=== PATIENT | male | born 1940 | race Caucasian/White ===

== ENCOUNTER 2017-08-31 14:30 | Observation (INO) | payer MEDICARE, OTHER ==
[~2017-08-31] VITALS: Ht 185.4 cm; Wt 95.2 kg
[2017-09-10] MEDS ORDERED: ELIQUIS5 MG PO (14:46)
[2017-09-10] MEDS ORDERED: METOPROLOL SUC100 MG PO (14:46)
[2017-09-10] MEDS ORDERED: IRBESARTAN150 MG PO (14:47)
--- NOTE | 2017-09-10 15:25 | NUR ---
PATIENT HERE TODAY FOR PREADMISSION APPOINTMENT. HE IS ACCOMPANIED BY HIS CHAU. HE IS SCHEDULED TO HAVE A RIGHT TOTAL KNEE REPLACEMEN ON 09/24/17. PATIENT STATES HE WOULD LIKE TO HAVE PHYSICAL THERAPY DONE IN [place]. STATES THE OFFICE FOR THE PHYSICAL THERAPIST IS IN THE [facility] BUILDING. HIS HAS HAD TOTAL KNEE SURGERY IN THE PAST AND THEY HAVE A FRONT WHEELED WALKER, SHOWER BENCH AND TOILET RISER. THEY ARE CURRENTLY LIVING IN A FIFTH WHEEL RV. THERE ARE 6 STEPS INTO THE RV AND 3 STEPS INTO THE BEDROOM FROM THE MAIN FLOOR. CHAU WILL BE THE ONE TO TRANSPORT HIM HOME AND TO APPOINTMENTS. THIS INFORMATION WILL BE SENT TO DR CARNEY OFFICE AND GA PLANNING FOR FURTHER FOLLOW UP.
[2017-09-10] MEDS ORDERED: VITAMIN C500 M1 PO (15:59)
[2017-09-10] MEDS ORDERED: ALLOPURINOL100 MG PO (15:59)
[2017-09-10] MEDS ORDERED: LORATADINE10 M2 PO (16:00)
[2017-09-10] MEDS ORDERED: ASPIR-LOW81 MG PO (16:00)
[2017-09-10] MEDS ORDERED: FINASTERIDE5 MG PO (16:00)
[2017-09-10] MEDS ORDERED: METFORMIN HCL500 MG PO (16:01)
[2017-09-10] MEDS ORDERED: MAGNESIUM CHLOR64 MG PO (16:01)
[2017-09-10] MEDS ORDERED: OMEPRAZOLE20 MG PO (16:01)
[2017-09-10] MEDS ORDERED: FLOMAX0.4 MG PO (16:02)
[2017-09-10] MEDS ORDERED: NITROGLYCERIN0.4 MG SL (16:02)
--- NOTE | 2017-09-24 11:48 | NUR ---
PT ALERT, ORIENTED AND SUPPORTED BY HIS . PT'S HAS HAD PREVIOUS JOINT REPLACEMENT WITH DR CARNEY, AND FEEL VERY SECURE. NO QUESTIONS, PT DID REQUEST PRAYER, WILL FOLLOW NEEDED
--- NOTE | 2017-09-24 12:24 | NUR ---
09/24/17 1224 Lola Bonilla 1208 PT ARRIVED IN PACU SLEEPY WITH NO C/O'S. CRYO CUFF PLACED ON R KNEE PER DR ORDERS. 1210 OXYGEN DECREASED TO 6L VIA MASK WITH SATS 100%. 1220 OXYGEN REMOVED. SATS 96% ON RA. PT VISITING WITH STAFF.
--- NOTE | 2017-09-24 13:28 | NUR ---
PT TO FLOOR AT 1300, ACCOMPANIED BY TALHA COTTON. RECIEVED BEDSIDE REPORT FROM TALHA COTTON. PT AWAKE, ALERT, ABLE TO MOVE LEGS, GROSS MOVEMENT, BUT UNABLE TO MOVE TOES. PT IS NOW ABLE TO MOVE RIGHT ANKLE AND TOES. PEDAL PULSES INTACT, DRESSING TO RIGHT KNEE C/D/I. PT FELL ASLEEP, AND OXYGEN SATURATION DROPPED TO 79% ON RA, PLACED PT ON 2L O2 VIA NC, SAT UP TO 98%.
--- NOTE | 2017-09-24 14:10 | NUR ---
PT RESTING IN BED, TALHA AGUSTIN ATTENDING. PT'S IS BY HIS SIDE, AND FELT HE WAS DOING WELL. PT SMILED AND ACKNOWLEDGED MY PRESENCE. EXTENDED A BLESSING, I WILL CONTINUE TO FOLLOW NEEDED
--- NOTE | 2017-09-24 14:43 | NUR ---
DR. TALAVERA AT BEDSIDE, NOTIFIED OF PATIENT'S DESATURATION WHILE SLEEPING, PATIENT IMPROVED WITH OXYGEN NC AT 2 LPM. NO FURTHER CONCERNS.
--- NOTE | 2017-09-24 14:46 | NUR ---
PT Eval assessment, charted on wrong patient. Patient should bed 122 instead of 125.
--- NOTE | 2017-09-24 15:00 | NUR ---
PT IN PATIENT ROOM.
--- NOTE | 2017-09-24 15:18 | NUR ---
PATIENT NAUSEATED, PATIENT HAD 500ML OF EMESIS, PATIENT GIVEN 4MG ZOFRAN IV. PATIENT WOULD LIKE TO HOLD OFF ON ORAL GABAPENTIN DUE TO NAUSEA AT THIS TIME.
--- NOTE | 2017-09-24 15:39 | NUR ---
PATIENT AMBULATED IN HALLWAY TWO LOOPS WITH PHYSICAL THERAPY FWW WITH GAIT BELT. PATIENT RETURNED WITH PHYSICAL THERAPY, ATTEMPT TO URINATE WITHOUT SUCCESS. PATIENT RETURNED TO BED. DRESSING CHECKED- C/D/I. SCDS APPLIED, CRYO CUFF PLACED ON RIGHT KNEE, HEEL PROTECTORS PLACED BACK ON PATIENT. IV FLUIDS CONTINUED.
--- NOTE | 2017-09-24 16:33 | NUR ---
ADMINISTERED 6.25MG PROMETHAZINE PER LEI LUNDY ENTRY WRITER REQUEST DUE TO PATIENT'S CONTINUED NAUSEA. PATIENT WITH 450ML EMESIS. PATIENT UNABLE TO EAT LUNCH PROVIDED DUE TO NAUSEA.
--- NOTE | 2017-09-24 17:09 | NUR ---
PATIENT WITH DINNER TRAY PROVIDED, PATIENT SITTING UPRIGHT, EATING. PATIENT'S AT BEDSIDE.
--- NOTE | 2017-09-24 18:20 | NUR ---
PATIENT WITH NO URGENCY OR FEELING THE NEED TO VOID, BLADDER SCAN PERFORMED ON PATIENT, 415ML.
--- NOTE | 2017-09-24 18:27 | NUR ---
PATIENT RESTING IN BED, READING. CALL LIGHT IN REACH. FRESH ICE WATER AT BEDSIDE TABLE. NO OTHER NEEDS AT THIS TIME.
--- NOTE | 2017-09-24 18:44 | NUR ---
PATIENT FROM OR AT 1330 HOURS, PATIENT WITH RTK, SPINAL WITH MORPHINE. PATIENT WITH MEPILEX, KULWANT WRAP, CRYO CUFF CLEAN, DRY, INTACT NO DRAINAGE. PATIENT ON ADA DIET. PATIENT WITH NAUSEA/VOMITTING EMESIS OF 450ML, 4MG ZOFRAN GIVEN IV. PATIENT WITH CONTINUED N/V, ADDITIONAL ORDER OF 6.25MG Q6P BY LEI LUNDY CRNA, AFTER ADMINISTRATION PATIENT DENIES N/V. PATIENT AMBULATED 2 LOOPS IN HALLWAY WITH PT USING FWW AND GAIT BELT. PATIENT DENIES PAIN. PATIENT GIVEN SCHEDULED TYLENOL AND TORADOL. PATIENT ATE 100% OF DINNER. PATIENT STILL WITH NO URINE OUTPUT, BLADDER SCAN PERFORMED AT 1800 HOURS, PATIENT WITH 415ML. NO URINARY CATHETER PLACED. PATIENT VOIDED 150ML, POST VOID SCAN SHOWED 480ML. PATIENT WITH DESATURATION TO 75-90% ON RA, PATIENT ON 2 LPM NC, CLEAR LUNG SOUNDS IN ALL BUSBY. PATIENT ENCOURAGED TO USE I/S AND DB&C. OTHERWISE VITALS STABLE. PEDAL PULSES EASILY PALPATED, SENSATION RETURNED TO BILATERAL FEET. RIGHT LOWER EXTREMITY MOVEMENT WEAK, PATIENT DOES WALK WITH FWW WITH 1 PERSON ASSIST.
--- NOTE | 2017-09-24 19:00 | NUR ---
IN ROOM FOR REPORT, PT IS AWAKE IN BED AND RATES PAIN AT 2/10 AT THIS TIME BUT DENIES NEED FOR PAIN MEDICATION.
--- NOTE | 2017-09-24 21:25 | NUR ---
IN ROOM TO ADMINISTER MEDICATIONS AND COMPLETE ASSESSMENT. PT WAS IN A DEEP SLEEP WHEN THIS RN ENTERED THE ROOM AND HAD AN INCONTINENT EPISODE. HELPED PT TO THE RESTROOM TO GET CLEANED UP AND HE VOIDED AN ADDITIONAL 225MLS. PT IS BACK IN BED AT THIS TIME WITH AES, SCDS, HEEL PROTECTORS AND CRYOCUFF IN PLACE. THE RT KNEE DRESSING IS CDI AND PT STATES HIS PAIN IS A 2/10 AT THIS TIME WHICH IS TOLERABLE. PT STATES HE HAS NO NUMBNESS OR TINGLING IN RT LEG AND HIS TOES ARE PINK AND WARM. DISCUSSED THE IMPORTANCE OF KEEPING ON TOP OF PAIN AND ADVISED PT TO LET THIS RN KNOW WHEN THE PAIN INCREASES. IV FLUID IS STILL RUNNING AT THIS TIME UNTIL WE CAN GET A MORE ACCURATE MEASUREMENT OF URINE. PT DENIES FURTHER NEEDS AT THIS TIME.
--- NOTE | 2017-09-24 23:10 | NUR ---
ASSISTED UP TO BATHROOM WITH FWW, [place], ABLE TO GET SELF OUT OF BED, STATING THAT HIS KNEE DOESN'T HURT, IT'S JUST ABOVE THE KNEE. BACK TO BED, CALL LIGHT, SCD'S, HEEL PROTECTS, CRYO IN PLACE, FRESH ICE WATER. STATES IT FELT GOOD TO GET UP.
--- NOTE | 2017-09-25 00:30 | NUR ---
PT IS RESTING WITH EYES CLOSED, RESPIRATIONS ARE EVEN AND NONLABORED. CALL LIGHT IS WITHIN REACH.
--- NOTE | 2017-09-25 03:01 | NUR ---
IN ROOM TO ADMINISTER MEDICATIONS PT HAD ANOTHER INCONTINENT EPISODE AND A VOID OF 200MLS. SL PT'S IV AT THIS TIME HE IS VOIDING AND TOLERATING FLUIDS AND FOOD. PT IS BACK IN BED WITH FRESH ICE IN CRYO AND DENIES FURTHER NEEDS. CALL LIGHT IS WITHIN REACH.
--- NOTE | 2017-09-25 06:19 | NUR ---
IN ROOM TO ADMINISTER TYLENOL. PT STATES PAIN IS 2/10 AT THIS TIME. FRESH WATER IS AT BEDSIDE AND PT DENIES FURTHER NEEDS.
--- NOTE | 2017-09-25 07:41 | OR ---
[facility] [address] [place], [place] [address] Signed DATE OF OPERATION: 09/24/2017 SURGEON: Nilsa Lindre MD PREOPERATIVE DIAGNOSIS: Degenerative joint disease, severe, right knee. POSTOPERATIVE DIAGNOSIS: Degenerative joint disease, severe, right knee. PROCEDURE PERFORMED: Right total knee arthroplasty with computer navigation. PULPWOOD CONTRACTOR: Glo Stevenson PA-C. Glo was present in critical positioning, retraction, and wound closure. ANESTHESIA: Spinal. BLOOD LOSS: Minimal. TOURNIQUET TIME: 55 minutes. IMPLANTS: [place] Triathlon size 6, 11 mm insert, and 38 patella. BRIEF HISTORY: João is a 76-year-old gentleman with progressive worsening of osteoarthritis in his knee. He had undergone nonoperative treatment without substantial relief. Risks, benefits, and alternatives were discussed with him. He elected to proceed. DESCRIPTION OF PROCEDURE: Once consent was obtained, he was taken to the operating room. After adequate anesthesia, he was placed on the operating room table and all downside pressure points well-padded. The right knee was prepped and draped in the standard sterile fashion up to well-padded proximal thigh tourniquet. The leg was exsanguinated using Esmarch bandage. Tourniquet inflated to 250 mmHg. Standard anterior-posterior through a curved Electronically Signed By: NILSA LINDER MD 09/25/17 0741 PATIENT NAME: JOÃO HUMPHREY OPERATIVE REPORT DATE OF : 44 REPORT #: [id number] PHYSICIAN: NILSA LINDER MD PCP: NILSA LINDER MD REPORT IS CONFIDENTIAL AND NOT TO BE RELEASED WITHOUT AUTHORIZATION [facility] [address] [place], [place] [address] Signed incision was taken through skin and subcutaneous tissue. Median parapatellar arthrotomy was performed. Infrapatellar fat pad was excised and the MCL was elevated of a sleeve around the posterior medial corner. The infrapatellar fat pad was excised. The anterior horns of menisci were transected and the ACL was transected. PCL was found to be intact. The knee was flexed and the navigation guide was pinned to the distal femur and the distal femur was registered with the computer. The distal femoral cutting guide was then pinned in anatomic alignment and the distal femoral cut was made. The distal femur was sized to a 6, osteophytes removed, and the AP cutting block was pinned in line with the epicondylar axis. The anterior, posterior, and chamfer cuts were made. The bone was removed. All osteophytes were removed as we went. Attention was then turned to the proximal tibia. The menisci were removed to allow better visualization. The Navigation guide was pinned to the tibia and the tibia was registered; however, the cutting block navigation guide would not work, so we elected to align the cutting jesi with the anterior tibial spine. The cutting block was pinned and the cut was made with care taken to protect the patellar tendon or MCL. The bone was excised as were any meniscal remnants. Posterior osteophytes were removed off the femur. No posterior release was performed secondary to excellent extension. The flexion and extension gaps were sized and found to be symmetric at 11 mm. The trials were positioned using range of motion and found to be stable. The patella was cut, sized, and drilled for a 38 mm patella. The distal femur was drilled and the proximal tibial keel punch was performed and the bone surfaces were pulse lavaged, packed with dry Ray-Twila. The cement was mixed. When it reached proper consistency, it was placed in all bone surfaces and all implants and tibia was impacted in position first and all excess cement was removed. The polyethylene was snapped into position and then the femur was impacted. Again, all excess cement was removed. The knee was extended and nicely loaded. The patella was clamped into position and the remaining cement was removed. The cement was allowed to harden. Once it hardened sufficiently, the knee was flexed and the remaining cement was removed using osteotomes. The knee was pulse lavaged at intervals throughout the procedure. A total of 3 L antibiotic irrigation was used. 100 mL of ropivacaine and Toradol mixture was injected in the soft tissues. The arthrotomy was closed with #2 Stratafix, subcutaneous tissue with #0 Stratafix, and skin with dayna. Wound was dressed with Mepilex, Ag dressing, ABD, and Ben wrap. He tolerated the procedure well. All sponge, needle, and instrument counts were correct. Nilsa Linder MD BA/MODL /[id number] Electronically Signed By: NILSA LINDER MD 09/25/17 0741 PATIENT NAME: JOÃO HUMPHREY OPERATIVE REPORT DATE OF : 42 REPORT #: [id number] PHYSICIAN: NILSA LINDER MD PCP: NILSA LINDER MD REPORT IS CONFIDENTIAL AND NOT TO BE RELEASED WITHOUT AUTHORIZATION [address] [address] Signed Copies: ~ Electronically Signed By: NILSA LINDER MD 09/25/17 0741 PATIENT NAME: JOÃO HUMPHREY OPERATIVE REPORT DATE OF : 42 REPORT #: [id number] PHYSICIAN: NILSA LINDER MD PCP: NILSA LINDER MD REPORT IS CONFIDENTIAL AND NOT TO BE RELEASED WITHOUT AUTHORIZATION
--- NOTE | 2017-09-25 08:24 | NUR ---
THIS PALEOLOGY PROFESSOR ASSISTED PATIENT TO TRANSFER FROM THE BED TO THE CHAIR. 1 PERSON SBA WITH FWW. PATIENT SITTING UP IN CHAIR EATING BREAKFAST. FRESH ICE IN CRYO. CALL LIGHT WITHIN REACH. NO OTHER NEEDS AT THIS TIME.
--- NOTE | 2017-09-25 10:06 | NUR ---
PATIENT SITTING UP IN CHAIR WITH LEGS EXTENDED OUT, PATIENT WITH NO COMPLAINTS AT THIS TIME. PATIENT REPORTS PAIN 2/10 BUT DENIES NEED FOR FURTHER PAIN MANAGEMENT. CALL LIGHT WITHIN REACH.
--- NOTE | 2017-09-25 10:55 | NUR ---
PT SITTING UP IN RECLINER, LEGS ELEVATED, CRYO CUFF IN PLACE. RIGHT KNEE DRESSING C/D/I. CMS TO RLE INTACT. PT WAS UP WITH PHYSICAL THERAPY THIS AM. AMBULATED WITH FWW WITH 1 PERSON ASSIST. TOLERATED WELL. PT RATES PAIN TO LEFT KNEE 2/10, DENIED NEED FOR FURTHER ANALGESICS AT THIS TIME. PT VISITING WITH OCCUPATIONAL THERAPIST.
--- NOTE | 2017-09-25 13:49 | NUR ---
PT SITTING UP IN BED-ALERT, ORIENTED AND SUPPORTED BY HIS . PT STATED THAT HE IS PLEASED WITH HIS PROGRESS-SO IS P.T. PT HAS CONQUERED THE STAIRS, AND SEEMS PLEASED WITH CARE. EXTENDED A BLESSING, WILL FOLLOW NEEDED
--- NOTE | 2017-09-25 14:05 | NUR ---
PATIENT SITTING UP IN IN BED. FAMILY MEMBERS IN ROOM. NO OTHER NEEDS AT THIS TIME.
--- NOTE | 2017-09-25 15:43 | NUR ---
PT WORKED WITH PHYSICAL THERAPY, WORKED IN THERAPY ROOM, REPORTED THAT HE USED NU STEP FOR 10 MINUTES, AND REPORTED THAT HE WENT UP AND DOWN THE STAIRS WITH PHYSICAL THERAPIST. PT NOW IN BED, WATCHING TV. DRESSING TO RIGHT KNEE C/D/I, CMS TO RLE INTACT. CYRO CUFF IN PLACE, FRESH ICE AND WATER PUT IN CRYO CUFF MACHINE BY JANELL. PT RATED PAIN TO RIGHT KNEE AND LOWER THIGH 3/10. GAVE SCHEDULED ACETAMINOPHEN, TORADOL, AND GABAPENTIN. DENIED NEED FOR PRN ANALGESIC AT THIS TIME. PT HAS PERSONAL SUPPLIES AND CALL LIGHT IN REACH. AT BEDSIDE. PT DENIED NEEDS.
--- NOTE | 2017-09-25 15:52 | NUR ---
PATIENT AMBULATED WITH PTHERAPY IN THE HALLWAY AND WORKED IN THE THERAPY ROOM. ICE IN CRYO. PATIENT SITTING UP IN BED NOW. PATIENTS IN ROOM. CALL LIGHT WITHIN REACH. NO OTHER NEEDS AT THIS TIME.
--- NOTE | 2017-09-25 18:01 | NUR ---
PT DOING WELL. TOLERATED ADA DIET WELL. TOOK OXYCODONE 5 MG PO PRN X 1 DOSE THUS FAR THIS SHIFT FOR C/O BREAKTHROUGH PAIN. HAS DECLINED FURTHER PRN ANALGESIC THUS FAR. RIGHT KNEE DRESSING C/D/I. RLE CMS INTACT. PT UP WITH 1 PERSON STANDBY ASSIST WITH FWW. WORKED WITH PHYSICAL THERAPY X 2 THIS SHIFT. PER PT'S REPORT, HE WENT UP AND DOWN STAIRS WITHOUT ISSUE THIS AFTERNOON. LUNGS CTA, PT ON RA. BOWEL TONES ACTIVE X 4 QUADRANTS, PT REPORTS PASSING GAS. PT ALERT, ORIENTED X 4. IV SALINE LOCKED, FLUSHES WELL.
--- NOTE | 2017-09-25 19:03 | NUR ---
PT IS AWAKE IN BED, HE RATES HIS PAIN 2/10 AT THIS TIME. HE DENIES NEEDS AT THIS TIME. CALL LIGHT IS WITHIN REACH.
[2017-09-25] MEDS ORDERED: GLUCOSAMINE-CH1 EA48 PO (19:16)
[2017-09-25] MEDS ORDERED: VOLTAREN100 GM TOP (19:16)
--- NOTE | 2017-09-25 19:17 | NUR ---
MED REC COMPLETE
--- NOTE | 2017-09-25 20:57 | NUR ---
PATIENT ASSISTED TO BED WITH SBA, TOLERATING AMBULATION WELL, GAIT IS STEADY. DENIES NEEDS AT THIS TIME. REPORST 3/10 PAIN IN RIGHT KNEE, SCHEDULED MEDICATIONS GIVEN. CALL LIGHT WITHIN REACH, ALL ORDERS IN PLACE.
--- NOTE | 2017-09-25 22:00 | NUR ---
PT IS RESTING IN BED AND ABOUT READY TO GO TO SLEEP. EVENING MEDICATIONS WERE GIVEN A LITTLE EARLIER. RT KNEE DRESSING IS CDI WITH CRYO CUFF IN PLACE. PT STATES PAIN IS 3/10. SCD'S, AES, AND HEEL PROTECTORS ARE IN PLACE. PT STATES HE IS AMBULATING WELL WITH THE WALKER AND STATES HE HAS A BM TODAY AND NO INCONTINENCE ISSUES TODAY. CALL LIGHT IS WITHIN REACH.
--- NOTE | 2017-09-25 23:20 | NUR ---
PT IS RESTING WITH EYES CLOSED, RESPIRATIONS ARE EVEN AND NONLABORED ON RA. CALL LIGHT IS WITHIN REACH.
--- NOTE | 2017-09-26 00:12 | NUR ---
PT IS RESTING WITH EYES CLOSED, RESP ARE EVEN AND NONLABORED. CALL LIGHT IS WITHIN REACH.
--- NOTE | 2017-09-26 02:44 | NUR ---
WOKE PT TO GIVE TORADOL. HE REQUESTED A WARM BLANKET AND DENIES FURTHER NEEDS.
--- NOTE | 2017-09-26 04:36 | NUR ---
PT CALLED TO USE RESTROOM, HELPED HIM TO THE RESTROOM AND BACK TO BED. HE DENIES FURTHER NEEDS AT THIS TIME. CALL LIGHT IS WITHIN REACH.
--- NOTE | 2017-09-26 04:46 | NUR ---
PT IS AMBULATING WELL WITH 1PA AND FWW. HIS PAIN HAS CONTINUED TO BE AT 2 OR 3 /10 AND REQUESTING OXYCODONE INFREQUENTLY. RT KNEE DRESSING IS CDI AND CMS IS INTACT. PT IS VOIDING QS AND DID NOT HAVE INCONTINENT EPISODES LAST NIGHT. PT IS HOPING TO GO HOME TODAY.
--- NOTE | 2017-09-26 05:40 | NUR ---
WOKE PT TO ADMINISTER MEDICATIONS. HE DENIES FURTHER NEEDS AT THIS TIME.
--- NOTE | 2017-09-26 07:32 | NUR ---
PT UP TO RECLINER USING FWW WITH 1 PERSON STANDBY ASSIST. CRYO CUFF ON, LEGS ELEVATED, DRESSING TO RIGHT KNEE C/D/I, CMS INTACT. PT RATED PAIN TO RIGHT KNEE 2/10, DENIED NEED FOR ANALGESIC AT THIS TIME.
--- NOTE | 2017-09-26 08:24 | NUR ---
PATIENT SITTING UP IN CHAIR. RN IN ROOM. NO OTHER NEEDS AT THIS TIME.
[2017-09-26] MEDS ORDERED: OXYCODONE HCL5 MG PO (08:32)
[2017-09-26] MEDS ORDERED: ONDANSETRON HCL4 MG PO (08:33)
[2017-09-26] MEDS ORDERED: NEURONTIN300 MG PO (08:33)
[2017-09-26] MEDS ORDERED: LIPITOR40 MG PO (08:35)
--- NOTE | 2017-09-26 08:54 | NUR ---
IN ROOM TO COMPLETE MORNING ASSESSMENT AND DISCUSS DISCHARGE PLAN. PT CURRENTLY RATING PAIN 3/10 IN RIGHT KNEE. PT FEELS COMFORTABLE WITH DISCHARGE TODAY.
--- NOTE | 2017-09-26 09:32 | NUR ---
PT UP AND AMBULATING IN HALLWAY WITH PHYSICAL THERAPY
--- NOTE | 2017-09-26 09:48 | NUR ---
pharmacy in room with pt to discuss discharge medication.
--- NOTE | 2017-09-26 10:17 | NUR ---
PT DISCHARGE INSTRUCTIONS GIVEN ON MEDICATION, FOLLOW-UP, MEDICATION, ACTIVITY, AND DIET. PT AND VERBALIZED UNDERSTANDING.
--- NOTE | 2017-09-26 10:32 | NUR ---
DATA DELIVERABLES MANAGER IN ROOM ASSISTING PT WITH SHOWER.
--- NOTE | 2017-09-26 13:33 | NUR ---
PT SITING IN WHEELCHAIR WAITING FOR NEWSPAPER WRITER TO TAKE HIM TO LOBBY FOR DC. HE WAS ALERT, ORIENTED, EXCITED AND READY TO GO. PT STATED HE FELT REALLY GOOD, AND EXPRESSED GRATITUDE. EXTENDED A BLESSING
--- NOTE | 2017-09-27 10:46 | NUR ---
FAXED CHART NOTES TO [employer], THIS INCLUDED FACESHEET, ORDER, H AND P X 2, OP NOTE, PROG NOTES, DC PACKET, PT AND OT EVAL AND NOTES. RECIEVED FAX CONFIRMATION, BUT TOO EARLY TO CALL. SO CALLED A LITTLE BIT AGO AND THEY STATED THEY NEVER GOT ANY FAX REGARDING THIS PT. I REFAXED CHART AGAIN RECIEVED FAX CONFIRMATION AND THIS TIME VINNY AT [employer] STATED SHE RECIEVED THE FAX.
== END 2017-09-26 10:45 | disposition home or self-care (01) ==
LOC: DSVR 09-24 06:50 → MS 09-24 06:50 → DSVR 09-24 12:54 → MS 09-24 12:54
PROVIDERS: ADMIT Specialist
PROC: 8E0YXBZ Computer Assisted Procedure of Lower Extremity (ICD-10-PCS; 2017-09-24)
PROC: 3E0T3BZ Introduction of Anesthetic Agent into Peripheral Nerves and Plexi, Percutaneous Approach (ICD-10-PCS; 2017-09-24)
PROC: 3E0T33Z Introduction of Anti-inflammatory into Peripheral Nerves and Plexi, Percutaneous Approach (ICD-10-PCS; 2017-09-24)
PROC: 0SRC0J9 Replacement of Right Knee Joint with Synthetic Substitute, Cemented, Open Approach (ICD-10-PCS; principal; 2017-09-24 10:45)
DX: M17.11 Unilateral primary osteoarthritis, right knee (principal); G89.18 Other acute postprocedural pain; I25.10 Atherosclerotic heart disease of native coronary artery without angina pectoris; I10 Essential (primary) hypertension; I48.0 Paroxysmal atrial fibrillation; E11.9 Type 2 diabetes mellitus without complications; K21.9 Gastro-esophageal reflux disease without esophagitis; N40.0 Benign prostatic hyperplasia without lower urinary tract symptoms; Z79.84 Long term (current) use of oral hypoglycemic drugs; E79.0 Hyperuricemia without signs of inflammatory arthritis and tophaceous disease
CPT/HCPCS: 01402; 36415; 64447; 64450; 76942; 80048; 85025; 96374; 96375; 96376; 97110; 97116; 97161; 97165; C1713; C1776; G0378; G8978; G8979; G8987; G8988; G8989; J0690; J1100; J1885; J2250; J2274; J2370; J2405; J2550; J2704; J2795; J3010; J7120

== ENCOUNTER 2018-09-16 06:55 | Inpatient (IN) | payer MEDICARE, OTHER ==
--- NOTE | 2018-09-03 17:28 | NUR ---
CARLYLE FOR 1300 PATIENT HERE TODAY ACCOMPANIED BY HIS FOR PREADMIT APPOINTMENT. HE IS SCHEDULED TO HAVE A LEFT TOTAL KNEE ARTHROPLASTY DONE ON 09/16/18. HE REPORTS HAVING A RIGHT TOTAL KNEE ARTHROPLASTY DONE APPROXIMATELY A YEAR AGO. THEY LIVE IN A FIFTH WHEEL RV AND HAVE 5 STEPS INTO THE RV. THERE ARE THREE STEPS INTO THE BEDROOM/BATHROOM AREA. HE REPORTS HAVING HIS WALKER STILL AND THERE IS A BENCH IN THE SHOWER HE USED LAST TIME EASILY. HE WOULD LIKE PHYSICAL THERAPY SET UP WITH [facility] IN [place] SINCE THIS IS WHERE THEY CURRENTLY LIVE. HIS IS SEEING A PHYSICAL THERAPIST THERE AND LIKE THE CARE. HIS KARI WILL BE THE ONE TO TRANSPORT HIM HOME AND TO APPOINTMENTS NEEDED. THIS INFORMATION WILL BE SENT TO DR CARNEY OFFICE AND CASE MANAGEMENT FOR FURTHER FOLLOW UP.
[~2018-09-16] VITALS: Ht 185.4 cm; Wt 98.9 kg
[~2018-09-16 06:55] MED LIST: ALLERGY RELIEF10 M1 PO; ALLOPURINOL100 MG PO; ASPIR-LOW81 MG PO; ELIQUIS5 MG PO; FINASTERIDE5 MG PO; FLOMAX0.4 MG PO; GLUCOSAMINE-CH1 EA48 PO; INDAPAMIDE2.5 MG PO; IRBESARTAN150 MG PO; LIPITOR40 MG PO; LORATADINE10 M2 PO; MAGNESIUM CHLOR64 MG PO; METFORMIN HCL500 MG PO; METOPROLOL TAR100 MG PO; NEURONTIN300 MG PO; NITROGLYCERIN0.4 MG SL; OMEPRAZOLE20 MG PO; ONDANSETRON HCL4 MG PO; OXYCODONE HCL5 MG PO; PROCARDIA XL30 MG PO; VITAMIN C500 M1 PO; VOLTAREN100 GM TOP
--- NOTE | 2018-09-16 11:04 | NUR ---
09/16/18 1104 Sheets,Kaur 1049 PT ARRIVED TP PACU DROWSY AND ASLEEP OFF AND ON. PT REACTIVE TO TACTILE STIMULI. RESP EVEN AND UNLABORED. 1100 PT MORE AWAKE AND TALKING TO RN. PT UNABLE TO MOVE TOES AND REPORTS NUMBNESS, SPINAL EDUCATION GIVEN. PT DENIES PAIN AND NAUSEA. PT REPORTS BEING "SLEEPY". PLAN OF CARE DISCUSSED.
--- NOTE | 2018-09-16 12:38 | NUR ---
PT TO FLOOR WITH TALHA AGEE. PT FAMILY IN ROOM. PT AWAKE AND TALKATIVE. REMAINS NUMB TO HIPS. IVF A@125, TRX ACID STARTED. DENIES PAIN OR DISCOMFORT. EDUCATED ON DRESSINGS, DIET, ACTIVITY AND MEDICATIONS.
--- NOTE | 2018-09-16 13:00 | NUR ---
PT RESTING WITH EYES CLOSED. HAS NOT EATEN JELLO YET. IN ROOM.
--- NOTE | 2018-09-16 13:39 | NUR ---
PATIENT IN BED RESTING. CRYO CHECKED. CALL LIGHT IN REACH. NO FURTHER NEEDS AT THIS TIME.
--- NOTE | 2018-09-16 16:29 | NUR ---
PT SITTING IN BED TALKING TO PHARM. MENDOZA. PT GIVEN MENU TO ORDER DINNER. IN ROOM.
--- NOTE | 2018-09-16 17:39 | NUR ---
PT AWOKEN FOR MEDICATIONS. TAKEN TO RESTROOM FOR LARGE VOID. CHANGED BED AND UNDERWEAR HE WET BED ALSO. SITTING UP IN CHAIR FOR DINNER.
--- NOTE | 2018-09-16 18:58 | NUR ---
PATIENT UP TO BATHROOM AND BACK TO BED, 1PA FWW. CRYO FILLED. FRESH WATER GIVEN. CALL LIGHT IN REACH. NO FURTHER NEEDS AT THIS TIME.
--- NOTE | 2018-09-16 19:16 | NUR ---
BEDSIDE REPORT RECEIVED FROM TALHA YAÑEZ. PT RESTING IN BED WITH EYES CLOSED. BREATHING EQUAL AND NON-LABORED. SCDS, CRYO CUFF, HEEL PROTECTORS ON. IVF INFUSING WNL ORDERED.
--- NOTE | 2018-09-16 21:26 | NUR ---
AROUND 2039 ASSISTED PATIENT TO THE BATHROOM USING WALKER AND BACK TO BED. SCD'S CRYO CUFF HEEL PROTECTOR ARE BACK ON. CHECKED THE CRYO STILL HAVE ICE. V/S AND I&O DONE AND CHARTED. BED ALARM ON.
--- NOTE | 2018-09-16 22:24 | NUR ---
PT ASSESSMENT COMPLETE. SBA W FWW TO RESTROOM FOR VOID AND BACK TO BED. DRESSING CDI LEFT KNEE. ON Q PUMP IN PLACE. SURINDER FLASHING GREEN LIGHT. CRYO CUFF REFILLED WITH ICE IN PLACE. SCDS, JAYESH HOSE, HEEL PROTECTORS ON. CSM INTACT. PT RATES PAIN "BETWEEN 1 AND 3". SCHEDULED PAIN MEDICATION ADMINISTERED. ICE WATER AND PUDDING PROVIDED. CALL LIGHT IN REACH. NO ADDITIONAL REQUESTS.
--- NOTE | 2018-09-16 23:33 | NUR ---
ASSISTED TO THE BATHROOM. PATIENT IS BACK IN BED. CALL LIGHT AND TABLE WITHIN REACH. BED ALARM ON.
--- NOTE | 2018-09-17 00:16 | NUR ---
ROUNDED ON PT. RESTING IN BED WITH EYES CLOSED. SPO2 DROPPED TO 80% WITH SLEEP, SPO2 INCREASES TO 96% UPON WAKING ON RA, 2L OXYGEN BY NC APPLIED FOR SLEEP. SBA WITH FWW TO RESTROOM FOR VOID. PT RATES PAIN 1-3 WITH MOVEMENT, REFUSES PRN PAIN MEDICATION. GAIT STEADY. SURINDER FLASHING GREEN LIGHT, KULWANT WRAP CDI. SCDS, HEEL PROTECTORS, CRYO CUFF, AND JAYESH HOSE ON. CALL LIGHT IN REACH.
--- NOTE | 2018-09-17 03:08 | NUR ---
PT ASSESSMENT AND VITALS COMPLETE. IV SALINE LOCKED WNL AT THIS TIME. SBA WITH FWW TO RESTROOM FOR VOID AND BACK TO BED. DRESSING CDI, SURINDER FLASHING GREEN. SCDS, JAYESH HOSE, HEEL PROTECTORS, AND CRYO CUFF IN PLACE. 2L OXYGEN BY NC ON FOR SLEEP. CALL LIGHT IN REACH.
--- NOTE | 2018-09-17 05:30 | NUR ---
IN PT ROOM FOR SCHEDULED PAIN MEDICATION ADMINISTRATION. PT RATES PAIN 4/10 IN LEFT KNEE. DENIES NEED FOR ADDITIONAL PAIN MEDICATION AT THIS TIME. VSS. SBA WITH FWW, JANELL SINTA ASSIST TO RESTROOM FOR VOID.
--- NOTE | 2018-09-17 06:35 | NUR ---
1PA WITH FWW TO RESTROOM FOR QS VOIDS. GAIT STEADY. IV SALINE LOCKED WNL. DRESSING CDI. PAIN WELL CONTROLLED WITH SCHEDULED MEDICATIONS. HAS RESTED WELL. APPEARED TO HAVE APNIC EPISODE WITH SLEEP, 2L OXGYEN BY NC APPLIED, CONT. PULSE OX IN PLACE. SATURATIONS WNL WHILE AWAKE. SCDS, HEEL PROTECTORS, JAYESH HOSE, CRYO CUFF IN PLACE THROUGHOUT NIGHT.
--- NOTE | 2018-09-17 06:45 | NUR ---
PT SLEEPING, AWAKENS TO VOICE. IV TYLENOL INFUSION COMPLETE. IV SALINE LOCKED WNL. BREAKFAST ORDER TAKEN FOR PT. NO ADDITIONAL REQUESTS AT THIS TIME.
--- NOTE | 2018-09-17 07:14 | NUR ---
Pt awake, in bed at this time. Pt denies needs and reports left knee pain is tolerable. Personal supplies and call light within reach.
--- NOTE | 2018-09-17 07:56 | OR ---
[facility] [address] [place], [place] [address] Signed DATE OF OPERATION: 09/16/2018 SURGEON: Nilsa Linder MD PREOPERATIVE DIAGNOSIS: Degenerative joint disease, left knee. POSTOPERATIVE DIAGNOSIS: Degenerative joint disease, left knee. PROCEDURE PERFORMED: Left total knee arthroplasty with computer navigation. RECYCLABLE MATERIALS COLLECTOR: Glo Stevenson PA-C. Glo was present and critical for all portions of the procedure. ANESTHESIA: Spinal. BLOOD LOSS: 134 mL. IMPLANTS: Arsenio Triathlon size 6, 11 mm insert and 38 patella. BRIEF HISTORY: João is a 77-year-old gentleman with worsening osteoarthritis in his left knee. A number of years ago, he had undergone successful right total knee and wished to proceed with a left. Once medical clearance was obtained, risks, benefits, and alternatives were discussed. He elected to proceed. DESCRIPTION OF PROCEDURE: Once consent was obtained, he was taken to the operating room. After adequate anesthesia, he was placed on operating room table. Hip bump was placed and leg was prepped and draped in a standard sterile fashion and the knee was approached through standard anterior incision, carried through skin and subcutaneous tissue. The median parapatellar arthrotomy was performed. All bleeders were cauterized as we went with the Aquamantys. The fat pad was excised and the MCL was elevated around posteromedially. The knee was flexed. Anterior horns of the lateral meniscus were transected. The ACL Electronically Signed By: NILSA LINDER MD 09/17/18 0756 PATIENT NAME: JOÃO HUMPHREY OPERATIVE REPORT DATE OF : 44 REPORT #: [id number] PHYSICIAN: NILSA LINDER MD PCP: BENNETT RENO MD REPORT IS CONFIDENTIAL AND NOT TO BE RELEASED WITHOUT AUTHORIZATION [facility] [address] [place], [place] [address] Signed was transected and the PCL was found to be intact. The navigation guide was pinned to the distal femur. The femur was registered with the computer. The distal femoral cut was made and the femur sized to a 6, which matched his opposite side. The AP cutting block was pinned and the anterior, posterior, and chamfer cuts were made in line with epicondylar axis. The osteophytes were removed. Attention was then turned to proximal tibia. The proximal tibia was cleared of menisci and navigation guide was pinned. It was then registered with the computer. The cutting block was then pinned in neutral alignment and the tibial cut was made with care taken to protect the patellar tendon and MCL. The bone was excised as were any meniscal remnants. Posterior release performed off the femur. Posterior osteophytes removed. Flexion-extension gaps were sized initially a 13, however, that was a little tight and so we went down to an 11. The trials were positioned. Knee was taken through range of motion with an 11 that had excellent range of motion and good stability. Patella was cut sized and drilled for a 38 patella. The distal femur was finished using the drill and the tibia was finished using the keel punch. The bone was pulse lavaged, packed with dry Ray-Twila. The cement was mixed and when reached proper consistency, placed all implants on all bone surfaces. Tibia was impacted into position first followed by the femur and the polyethylene was snapped into position. All excess cement removed as we went. The knee was extended and nicely loaded. The patella was clamped into position again and any overflow was removed. The knee was flexed. Any remaining overflow was removed using osteotomes through the cement dried. The knee was pulse lavaged at intervals. A total of 4 L antibiotic irrigation was used. The periarticular soft tissues were injected with 100 mL ropivacaine Toradol mixture. The On-Q pump was then placed in the adductor canal from the suprapatellar approach. The arthrotomy was then closed using #2 Stratafix, #0 Stratafix for the subcutaneous tissue and Prevena dressing for the skin. He was dressed with a SURINDER wound VAC dressing and Ben wrap, taken to recovery room in satisfactory condition. All sponge, needle, and instrument counts were correct. Nilsa Linder MD BA/MODL /[id number] Copies: Electronically Signed By: NILSA LINDER MD 09/17/18 0756 PATIENT NAME: JOÃO HUMPHREY OPERATIVE REPORT DATE OF : 44 REPORT #: [id number] PHYSICIAN: NILSA LINDER MD PCP: BENNETT RENO MD REPORT IS CONFIDENTIAL AND NOT TO BE RELEASED WITHOUT AUTHORIZATION [facility] [address] [place] [id number] Signed ~ Electronically Signed By: NILSA LINDER MD 09/17/18 0756 PATIENT NAME: KAMJOÃO OPERATIVE REPORT DATE OF : 44 REPORT #: [id number] PHYSICIAN: NILSA LINDER MD PCP: BENNETT RENO MD REPORT IS CONFIDENTIAL AND NOT TO BE RELEASED WITHOUT AUTHORIZATION
--- NOTE | 2018-09-17 08:07 | NUR ---
PATIENT UP TO BATHROOM THEN TO CHAIR, 1PA FWW. CALL LIGHT IN REACH. NO FURTHER NEEDS AT THIS TIME.
[2018-09-17] MEDS ORDERED: CELECOXIB200 MG PO (08:11)
[2018-09-17] MEDS ORDERED: OXYCODONE HCL5 MG PO (08:11)
[2018-09-17] MEDS ORDERED: GABAPENTIN300 MG PO (08:11)
[2018-09-17] MEDS ORDERED: HEALTHYLAX17 GM PO (08:12)
[2018-09-17] MEDS ORDERED: SENNA LAX8.6 MG PO (08:12)
--- NOTE | 2018-09-17 10:15 | NUR ---
PATIENT IN CHAIR. STUDENT NURSE DID V/S. FRESH WATER GIVEN. CALL LIGHT IN REACH. NO FURTHER NEEDS AT THIS TIME.
--- NOTE | 2018-09-17 13:54 | NUR ---
PT SITTING IN CHAIR, WATCHING TV. HE IS ALERT, ORIENTED AND WAITING FOR HIS TO COME AND TAKE HIM HOME FOLLOWING DC. HE SAID PAIN IS UNDER CONTROL, AND THAT HE HAD R KNEE REPLACED LAST YEAR. PT LIVES IN , AND HE FEELS IT HELPS HIM WITH [facility]. HAD PLEASANT VISIT, PT THANKED ME FOR COMING BY. EXTENDED A BLESSING, WILL FOLLOW NEEDED
--- NOTE | 2018-09-17 14:53 | NUR ---
PATIENT SITTING IN BED DRESSED AND HOPING TO GO HOME. CALL LIGHT IN REACH. NO FURTHER NEEDS AT THIS TIME.
--- NOTE | 2018-09-17 16:29 | NUR ---
FAXED CLINICALS TO [facility] INCLUDING FACE SHEET, ORDER, H AND P, OP NOTE, PROG NOTE, PT AND OT EVAL AND NOTE.
== END 2018-09-17 15:25 | disposition home or self-care (01) | DRG 470 ==
LOC: DS 06:55 → MS 06:55 → DS 08:45 → EDSTATUS 08:45 → MS 11:25 → DS 11:26 → MS 09-17 15:25
PROVIDERS: ADMIT Specialist
PROC: 8E0YXBZ Computer Assisted Procedure of Lower Extremity (ICD-10-PCS; 2018-09-16)
PROC: 3E0T3BZ Introduction of Anesthetic Agent into Peripheral Nerves and Plexi, Percutaneous Approach (ICD-10-PCS; 2018-09-16)
PROC: 0SRD0J9 Replacement of Left Knee Joint with Synthetic Substitute, Cemented, Open Approach (ICD-10-PCS; principal; 2018-09-16 08:45)
DX: M17.12 Unilateral primary osteoarthritis, left knee (principal); G89.18 Other acute postprocedural pain; I10 Essential (primary) hypertension; I25.10 Atherosclerotic heart disease of native coronary artery without angina pectoris; E11.9 Type 2 diabetes mellitus without complications; I25.2 Old myocardial infarction; K21.9 Gastro-esophageal reflux disease without esophagitis; N40.0 Benign prostatic hyperplasia without lower urinary tract symptoms; E78.5 Hyperlipidemia, unspecified; Z87.891 Personal history of nicotine dependence; Z96.651 Presence of right artificial knee joint; Z88.5 Allergy status to narcotic agent; Z95.5 Presence of coronary angioplasty implant and graft; Z88.8 Allergy status to other drugs, medicaments and biological substances; Z79.02 Long term (current) use of antithrombotics/antiplatelets; Z79.82 Long term (current) use of aspirin; Z79.899 Other long term (current) drug therapy
CPT/HCPCS: 01402; 64447; 64450; 76942; 94762; 97110; 97116; 97162; C1713; C1776; J0131; J0690; J1885; J2250; J2704; J2795; J3010; J7040; J7120; J8540

== ENCOUNTER 2019-10-27 06:50 | Day surgery (SDC) | payer MEDICARE, OTHER ==
[~2019-10-27] VITALS: Ht 185.4 cm; Wt 98.9 kg
[~2019-10-27 06:50] MED LIST changes: +ASPIR 8181 MG PO; +CELECOXIB200 MG PO; +GABAPENTIN300 MG PO; +HEALTHYLAX17 GM PO; +SENNA LAX8.6 MG PO
[2019-10-27] MEDS ORDERED: NIFEDIPINE ER30 M1 PO (07:12)
[2019-10-27] MEDS ORDERED: GABAPENTIN300 MG PO (10:23)
[2019-10-27] MEDS ORDERED: OXYCODONE HCL5 MG PO (10:23)
[2019-10-27] MEDS ORDERED: SENNA LAX8.6 MG PO (10:23)
--- NOTE | 2019-10-28 09:16 | OR ---
[facility] [address] [place], [place] [address] Signed DATE OF OPERATION: 10/27/2019 SURGEON: Nilsa Linder MD PREOPERATIVE DIAGNOSIS: Left patellofemoral ligament tear. POSTOPERATIVE DIAGNOSIS: Left patellofemoral ligament tear. PROCEDURE PERFORMED: Repair of left patellofemoral ligament, medial. HIGH SCHOOL TEACHER: LARRY Levin was present for the entirety of the surgery and was necessary in patient positioning, retraction and wound closure. ANESTHESIA: Spinal. BLOOD LOSS: None. TOURNIQUET TIME: 26 minutes. BRIEF HISTORY: João is a 78-year-old gentleman, who underwent total knee about a year ago while playing pickleball, he stumbled and fell and had an injury to his left knee. His repeat radiographs showed the patella to be subluxed and offset consistent with a tear of the medial patellofemoral retinaculum. Risks and benefits of operative repair of this were discussed with him. He did have a painful knee and infection workup was completely negative. DESCRIPTION OF PROCEDURE: After consent was obtained, he was taken to the operating room after adequate anesthesia. He was placed on the operating room table, all downside pressure points were well padded. The leg was prepped and draped in a standard sterile fashion. Preoperatively, it was noted he had about a 5-7 degree flexion contracture, which I did not notice in his preop workup at the office. This was fairly tight and I was unable to Electronically Signed By: NILSA LINDER MD 10/27/19 1226 PATIENT NAME: JOÃO HUMPHREY OPERATIVE REPORT DATE OF : 44 REPORT #: [id number] PHYSICIAN: NILSA LINDER MD PCP: BENNETT RENO MD REPORT IS CONFIDENTIAL AND NOT TO BE RELEASED WITHOUT AUTHORIZATION [facility] [address] [place], [place] [address] Signed get him to more than about 3 or 4 degrees of flexion. The leg was prepped and draped in a standard sterile fashion. Prior incision was incised longitudinally and subcutaneous flaps were developed medially and a little bit laterally to allow mobilization. The retinaculum was noted to have a soft spot with minimal tissue in the midportion. With careful dissection, we were able to take the retinaculum off the underlying capsule. The joint was not entered. We developed retinacular flaps anteriorly and posteriorly and using 0 Ethibond, we did a dpbdi-pxmc-bivu repair advancing the patella slightly superiorly, advancing the VMO distally and laterally. This was done with the Ethibond and oversewed using interrupted #1 Vicryl. The knee was able to flex to 90 degrees with no stretching or gapping of the repair. The wound was copiously irrigated with antibiotic solution, closed with #0 Stratafix, and dayna, a SURINDER wound VAC dressing and Ben wrap were. He tolerated the procedure well. All sponge, needle, and instrument counts were correct. Nilsa Linder MD BA/MODL /[id number] Copies: ~ Electronically Signed By: NILSA LINDER MD 10/27/19 1226 PATIENT NAME: JOÃO HUMPHRYE OPERATIVE REPORT DATE OF : 44 REPORT #: [id number] PHYSICIAN: NILSA LINDER MD PCP: BENNETT RENO MD REPORT IS CONFIDENTIAL AND NOT TO BE RELEASED WITHOUT AUTHORIZATION
== END 2019-10-27 15:10 | disposition home or self-care (01) ==
LOC: DS 06:50
PROVIDERS: Specialist
PROC: 0MQP0ZZ Repair Left Knee Bursa and Ligament, Open Approach (ICD-10-PCS; principal; 2019-10-27 08:45)
DX: S76.112A Strain of left quadriceps muscle, fascia and tendon, initial encounter (principal); I10 Essential (primary) hypertension; I48.91 Unspecified atrial fibrillation; J45.909 Unspecified asthma, uncomplicated; K21.9 Gastro-esophageal reflux disease without esophagitis; Z96.652 Presence of left artificial knee joint; Z79.899 Other long term (current) drug therapy; Z79.01 Long term (current) use of anticoagulants; Z79.82 Long term (current) use of aspirin; Z87.891 Personal history of nicotine dependence; X58.XXXA Exposure to other specified factors, initial encounter; Y93.89 Activity, other specified
CPT/HCPCS: 01392; 64447; 76942; 97163; J0690; J0735; J1100; J1885; J2001; J2250; J2405; J2704; J2765; J2795; J3010; J7121

== ENCOUNTER 2021-12-17 13:38 | Emergency (ER) | payer MEDICARE, OTHER ==
[~2021-12-17] VITALS: Ht 185.4 cm; Wt 99.8 kg
[~2021-12-17 13:38] MED LIST changes: +NIFEDIPINE ER30 M1 PO
--- OUTSIDE RECORDS SUMMARY | 2021-12-17 13:42 | XMS ---
PreManage Notification: YEFRI HUMPHREY Security Assistant [employer] Delivery Events No recent Security Events currently on file CRITERIA MET - [facility] C[facility] PROVIDERS Bethel Linder Specialist Current [place] PHONE: Unknown Tiki has no Care Guidelines for this patient. ENaomi VISIT COUNT (12 MO.) 1 DONN Muñoz TOTAL 1 NOTE: Visits indicate total known visits. ED/UCC VISIT TRACKING (12 MO.) 12/17/2021 13:40 DONN Mitchell OR TYPE: Emergency COMPLAINT: - POST OP ISSUE INPATIENT VISIT TRACKING (12 MO.) 12/12/2021 09:02 Legernestina [facility] [place] TYPE: Surgery DIAGNOSES: - Other mechanical complication of internal left knee prosthesis, initial encounter - Presence of left artificial knee joint 10/31/2021 09:01 Legernestina [facility] [place] TYPE: Surgery DIAGNOSES: - Presence of left artificial knee joint - Other mechanical complication of internal left knee prosthesis, initial encounter [email or web address]
[2021-12-17] MEDS ORDERED: ALLOPURINOL100 MG PO (14:05)
[2021-12-17] MEDS ORDERED: VITAMIN C500 M1 PO (14:06)
== END 2021-12-17 15:16 | disposition home or self-care (01) ==
LOC: ED 13:38
DX: M96.830 Postprocedural hemorrhage of a musculoskeletal structure following a musculoskeletal system procedure (principal); I25.10 Atherosclerotic heart disease of native coronary artery without angina pectoris; I10 Essential (primary) hypertension; E78.5 Hyperlipidemia, unspecified; Z87.891 Personal history of nicotine dependence; Z88.1 Allergy status to other antibiotic agents; Z88.5 Allergy status to narcotic agent; Z88.8 Allergy status to other drugs, medicaments and biological substances; Z79.899 Other long term (current) drug therapy; Z79.82 Long term (current) use of aspirin
CPT/HCPCS: 99283

== ENCOUNTER 2024-10-27 05:40 | Day surgery (SDC) | payer MEDICARE, OTHER ==
[2024-10-20 09:23] VITALS: BP 138/75
[~2024-10-27] VITALS: Ht 182.9 cm; Wt 95.9 kg
[2024-10-27] VITALS (9 sets, daily range): BP systolic 129–172; BP diastolic 54–91
[~2024-10-27 05:40] MED LIST changes: +ALLERCLEAR10 MG PO; +LACTATED RINGER'S 1,000 ML IV SCH; +VITAMIN C500 M4 PO; +VITAMIN D350 MC3 PO
[2024-10-27] MEDS ORDERED: CEFAZOLIN SODIUM 2 GM/20 ML SYR IV SCH (07:00)
[2024-10-27] MEDS ORDERED: LIDOCAINE HCL 1% 5 ML SDV INJ ONE (07:00)
[2024-10-27] MEDS ORDERED: IBLOOD GLUCOSE TEST STRIP 1 EA TEST VI PRN ×2 (07:00→08:45)
[2024-10-27] MEDS ORDERED: fentaNYL citrate 100 MCG/2 ML VIAL ONE (07:21)
[2024-10-27] MEDS ORDERED: propofoL 200 MG/20 ML VIAL ONE (07:21)
[2024-10-27] MEDS ORDERED: DEXAMETHASONE SOD PHOS 4 MG/ML VIAL ONE (07:21)
[2024-10-27] MEDS ORDERED: BUPIVACAINE 0.75% IN DEXTROSE 2 ML AMP ONE (07:23)
[2024-10-27] MEDS ORDERED: LIDOCAINE HCL 2% 5 ML SDV ONE (07:23)
[2024-10-27] MEDS ORDERED: MORPHINE SULFATE 4 MG/ML VIAL IV PRN (08:00)
[2024-10-27] MEDS ORDERED: TRAMADOL HCL 50 MG TAB PO PRN (08:00)
[2024-10-27] MEDS ORDERED: ACETAMINOPHEN 500 MG TAB PO PRN (08:00)
[2024-10-27] MEDS ORDERED: ondansetron HCL 4 MG/2 ML VIAL IV PRN ×2 (08:00→08:45)
[2024-10-27] MEDS ORDERED: diphenhydrAMINE HCL 25 MG CAP PO PRN (08:00)
[2024-10-27] MEDS ORDERED: LACTATED RINGER'S 1,000 ML IV SCH (08:00)
[2024-10-27] MEDS ORDERED: fentaNYL citrate 50 MCG/ML SDV IV PRN (08:45)
[2024-10-27] MEDS ORDERED: NALOXONE HCL 0.4 MG SYR IV PRN (08:45)
[2024-10-27] MEDS ORDERED: FAMOTIDINE 20 MG TAB PO SCH (09:00)
[2024-10-27] MEDS ORDERED: HYDROCORTISONE 1% 30 GM TUBE TOP ONE (09:15)
--- NOTE | 2024-10-27 10:24 | NUR ---
PT ARRIVES TO MED-SURG VIA BED, PT IS AWAKE AND ALERT, VISITOR X1 IN ROOM. VERBAL REPORT RECEIVED FROM YOLIS Bailey RN. VSS. THREE WAY CATHETER IN PLACE WITH BLADDER IRRIGATION, NS, INSTILLING. IRELAND DRAINS LIGHT YELLOW, CLEAR URINE TO GRAVITY. NO PENILE DISCHARGE OR TRAUMA NOTED, CATHETER SECURED TO RLE. CPOX IN PLACE, SCDS TO BLE FROM KNEES TO ANKLES. PT SIPS ICE WATER, TOLERATES THIS WELL. DENIES PAIN OR NAUSEA AT THIS TIME. REPORTS, "TINGLING" IN BILAT TOES, PT UNABLE TO MOVE TOES, CAN SLIGHTLY MOVE KNEES, PT PROGRESSING AFTER SPINAL. MULTI SLIDE MACHINE TENDER TO BLE AND BUE IS LESS THAN 3 SEC. PT IS A&0 X4. LUNGS CLEAR, HR IRREGULAR WITH HX OF A-FIB. BT ACTIVE X4 QUADRANTS. PT ORIENTED TO ROOM, BED, AND CALL LIGHT, CALL LIGHT IN REACH. PT SAH BAG IN ROOM. GLASSES ON PT. HEARING AIDS IN ROOM IN BLUE BAG MANAGED BY SPOUSE. BED IN LOW POSITION, BREAKS ON. PT INSTRUCTED TO CALL FOR ASSIST AND NOT TO GET OUT OF BED.
--- NOTE | 2024-10-27 10:49 | NUR ---
SHEREE FREEMAN PROVIDED PER PT REQUEST.
--- NOTE | 2024-10-27 10:59 | NUR ---
10/27/24 Aamya Simons Shavonne 5149- PT PRESENTS TO PACU, SEMI SO POSITION. REACTIVE TO STIMULUS, BUT REMAINS ASLEEP. BREATHING EVEN AND NON LABORED, O2 MASK AT 6L. LR INFUSING TO RFA IV. ABD SOFT, NON DISTENDED. CBI INFUSING THROUGH [address], CLEAR URINE COMING IN IRELAND WITH TINT OF PINK. IRELAND EMPTIED AND BAGS MARKED. ALL MONITORS IN PLACE. 0955- PT WAKES EASILY, DROWSY. DENIES PAIN OR NAUSEA. EDUCATED ON THE IRELAND. MOVED TO ROOM AIR. 1000- PT REPORTS FEELING HUNGRY, NO OTHER COMPLAINTS. ICE WATER PROVIDED, TOLERATING WELL. 1020- PT TAKEN TO MED/SURG ROOM 120, IN ROOM. CBI RUNNING, CLEAR DRAINAGE IN COLLECTION BAG. NO BLOOD AROUND CATHETER. IRELAND EMPTIED AND BAGS MARKED FOR MED/SURG START OF CBI. PT HAS NO COMPLAINTS. REPORT TO SARAH PALENCIA AT BEDSIDE, CARE OF PT TURNED OVER AT THIS TIME, VITALS OBTAINED AND BED PLUGGED IN.
[2024-10-27] MEDS ORDERED: CIPRO500 MG PO (11:01)
[2024-10-27] MEDS ORDERED: TRAMADOL HCL50 MG PO (11:04)
--- NOTE | 2024-10-27 12:07 | NUR ---
PT IS RESTING IN BED. EYES ARE CLOSED. RESPIRATIONS ARE EVEN AND UNLABORED. SPOUSE IS IN THE ROOM. DENIES ANY CONCERNS OR NEEDS AT THIS TIME. VS OBTAINED.
--- NOTE | 2024-10-27 13:14 | NUR ---
PT RESTS IN BED AWAKE AND ALERT. ABLE TO MOVE BILATERAL LEGS AND TOES, DENIES NUMBNESS OR TINGLING. IRELAND CONTINUES TO DRAIN CLEAR PALE YELLOW URINE, NS BLADDER IRRIGATION IN PROGRESS. CALL LIGHT IN REACH, NO REQUESTS AT THIS TIME.
--- NOTE | 2024-10-27 15:29 | NUR ---
PT RESTS IN BED, AWAKE AND ALERT. IRELAND CONTINUES TO DRAIN PALE YELLOW URINE. BLADDER IRRIGATION STOPPED.
--- NOTE | 2024-10-27 17:18 | NUR ---
BLADDER IRRIGATION REMAINS CLAMPED, URINE OUTPUT CLEAR AND YELLOW, DRAINS TO GRAVITY BAG FROM IRELAND. EATS 80% OF DINNER, TOLERATES THIS WELL. BELONGINGS AND CALL LIGHT IN REACH. PT SITS UP IN BED, AWAKE AND ALERT, REPORTS PAIN TOLERABLE AT THIS TIME. NO FURTHER REQUESTS.
--- NOTE | 2024-10-27 19:40 | NUR ---
REPORT RECEIVED FROM DAY SHIFT RN. PT LYING IN BED ALERT AND ORIENTED. DENIES NEEDS. WHITE BOARD UPDATED. CALL LIGHT IN REACH.
[2024-10-27] MEDS ORDERED: LOSARTAN POTASSIUM 50 MG TAB PO ONE (20:00)
--- NOTE | 2024-10-27 21:11 | NUR ---
EVENING ASSESSMENT COMPLETE. SCHEDULED MEDS ADMIN PER EMAR. PT DENIES PAIN OR NAUSEA. CBI CLAMPED. URINE IN IRELAND TUBING PINK. NO CLOTS NOTED. SCD'S/CPOX IN PLACE. ASSISTED PT TO BED GONZALEZ. NO FURTHER NEEDS. CALL LIGHT IN REACH.
--- NOTE | 2024-10-27 21:30 | NUR ---
ASSISTED PT OFF BED GONZALEZ. NO RESULTS. 2PA TO REPOSITION IN BED. IRELAND CARE COMPLETE. PT EDUCATION PROVIDED. PT REPORTS 2/10 GENERALIZED DISCOMFORT. PRN FOR PAIN ADMIN PER EMAR. PT DENIES FURTHER NEEDS. CALL LIGHT IN REACH.
--- NOTE | 2024-10-27 23:36 | NUR ---
PT RESTING IN BED WITH EYES CLOSED. RESPIRATIONS EVEN. CALL LIGHT IN REACH.
[2024-10-28 01:49] VITALS: BP 164/77
[2024-10-28 01:51] VITALS: BP 164/77
--- NOTE | 2024-10-28 01:55 | NUR ---
PT RESTING WITH EYES CLOSED. AWAKENS EASILY. VS AND I&O OBTAINED. PT DENIES PAIN OR NAUSEA. URINE IN IRELAND TUBING CLEAR YELLOW. CBI REMAINS CLAMPED. NO FURTHER NEEDS. CALL LIGHT IN REACH.
--- NOTE | 2024-10-28 03:23 | NUR ---
PT RESTING IN BED WITH EYES CLOSED. RESPIRATIONS EVEN. CALL LIGHT IN REACH.
[2024-10-28 06:42] VITALS: BP 157/94
--- NOTE | 2024-10-28 06:59 | NUR ---
PT RESTING WITH EYES CLOSED. AWAKENS EASILY. VS AND I&O OBTAINED. IV ABX INFUSING WNL. PT DENIES PAIN OR NAUSEA. URINE IN IRELAND TUBING REMAINS CLEAR YELLOW. PT DENIES NEEDS. CALL LIGHT IN REACH.
[2024-10-28 07:00] VITALS: BP 157/94
[2024-10-28] MEDS ORDERED: CEFTRIAXONE SODIUM 1 GM in SODIUM CHLORIDE 0.9% 100 ML IV SCH (07:00)
--- NOTE | 2024-10-28 07:27 | NUR ---
Patient awake, alert and oriented x3, no notable distress. Patient denies pain at this time. Bladder irrigation is clamped, urine output is clear yellow, small scattered sediments noted. IV abx done at this time, iv flushed-patent. Patient denies needs at this time. Call light within reach.
--- NOTE | 2024-10-28 07:50 | NUR ---
UR CLINICAL REVIEW: 2 MN FOR VERSALUS-PER CYBER SECURITY ANALYST MEETS EXTENDED STAY FOR TURP WITH NEED FOR CBI MEDICARE EXTENDED STAY 10/27/24 @ 0755 ORDER MATCHES REG NO AUTH REQUIRED PER MEDICARE GUIDELINES ANTICIPATE DC TO HOME TODAY
--- NOTE | 2024-10-28 08:22 | NUR ---
RIGHT ARM IV D/C'D WITH CATHETER INTACT. CBI PORT PLUGGED IN IRELAND CATHETER. REVIEWED IRELAND CARE WITH PATIENT AND PATIENT'S SPOUSE. SPOUSE DID EMPTY CATHETER BAG WELL. SUPPLIES SENT HOME FOR EMPTYING IRELAND AND CATH CARE WIPES.
--- NOTE | 2024-10-28 09:01 | NUR ---
Ultram 50mg po admin to pt for reported 2/10 generalized pain.
--- NOTE | 2024-10-28 09:35 | NUR ---
MED REC COMPLETE
[2024-10-28 09:40] VITALS: BP 169/87
[2024-10-28] MEDS ORDERED: METOPROLOL TARTRATE 100 MG TAB PO SCH (21:00)
--- NOTE | 2024-10-29 20:34 | PATH ---
[facility] [address] [facility] [place], [place] [address] Signed SPECIMEN(S): A PROSTATE CHIPS SPECIMEN SOURCE: Nora PROSTATE BRANDI CLINICAL HISTORY: Bladder neck obstruction FINAL PATHOLOGIC DIAGNOSIS: Prostate, TURP: - Glandular and stromal hyperplasia. 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 - Negative for malignancy. SDL MICROSCOPIC EXAMINATION: Histologic sections of all submitted blocks are examined by light microscopy. These findings, together with the gross examination, support the pathologic diagnosis. GROSS DESCRIPTION: The specimen, labeled and designated "patience Hicks," is received in formalin and consists of multiple fragments of pink-brock soft and rubbery tissue (8.4 g, 5.5 x 5.0 x 1.5 cm in aggregate). The specimen is submitted entirely in cassette (A1-A6). VB (under the direct supervision of a pathologist) The Gross Description was prepared using a voice recognition system. The report was reviewed for accuracy; however, sound-alike word errors, addition and/or deletions may occur. If there are any questions about this report, please contact Client Services. ADDITIONAL NOTES: Immunohistochemical and/or in situ hybridization studies if performed in this case included appropriate positive controls that reacted as expected. This test was developed and its performance characteristics determined by [facility]. It has not been cleared or approved by the U.S. Food and Drug Administration. The FDA has determined that such clearance or approval is not necessary. This test is used for clinical purposes. It should not be regarded as investigational or for research. [facility] is certified under the Clinical Laboratory Improvement PATIENT NAME: YEFRI HICKS PATHOLOGY DATE OF : 44 REPORT #: [id number] PHYSICIAN: MEGAN PATHOLOGY PCP: BENNETT RENO MD REPORT IS CONFIDENTIAL AND NOT TO BE RELEASED WITHOUT AUTHORIZATION [address] [place], [place] [address] Signed Amendments of 1988 (CLIA) as qualified to perform high complexity clinical laboratory testing. PERFORMING LABORATORY: Technical component was performed by [facility], [address] [place] [id number] (CLIA# [id number]). Professional interpretation was performed by [facility], [address] [place] [id number] (CLIA#: [id number]). Diagnostician: Laury Hayden MD Pathologist Electronically Signed 10/29/2024 Copies: ~ PATIENT NAME: YEFRI HICKS PATHOLOGY DATE OF : 42 REPORT #: [id number] PHYSICIAN: MEGAN PATHOLOGY PCP: BENNETT RENO MD REPORT IS CONFIDENTIAL AND NOT TO BE RELEASED WITHOUT AUTHORIZATION
== END 2024-10-28 09:57 | disposition home or self-care (01) ==
LOC: DS 05:40 → MS 10:15 → DS 10-28 09:57
PROVIDERS: ATTEND Urology
PROC: 0VT08ZZ Resection of Prostate, Via Natural or Artificial Opening Endoscopic (ICD-10-PCS; principal; 2024-10-27 07:30)
DX: N40.1 Benign prostatic hyperplasia with lower urinary tract symptoms (principal); R39.14 Feeling of incomplete bladder emptying; N32.89 Other specified disorders of bladder; N41.0 Acute prostatitis; N41.1 Chronic prostatitis; N13.8 Other obstructive and reflux uropathy; R39.11 Hesitancy of micturition; N39.498 Other specified urinary incontinence; R39.15 Urgency of urination; R35.0 Frequency of micturition; R35.1 Nocturia; I48.91 Unspecified atrial fibrillation; I25.10 Atherosclerotic heart disease of native coronary artery without angina pectoris; Z87.891 Personal history of nicotine dependence; Z79.01 Long term (current) use of anticoagulants; Z79.82 Long term (current) use of aspirin; Z79.899 Other long term (current) drug therapy; Z88.8 Allergy status to other drugs, medicaments and biological substances; Z95.5 Presence of coronary angioplasty implant and graft
CPT/HCPCS: 00914; 51700; 88305; 96360; 96361; 96365; C1713; C1769; J0690; J0696; J1100; J2003; J2704; J3010; J7121